=== PATIENT | male | born 1985 | race Caucasian/White ===

== ENCOUNTER 2024-03-03 19:59 | Emergency (ER) | payer MEDICAID, OTHER ==
[2024-03-03] MEDS: Ibuprofen 800 MG Tab PO ONE (21:58)
== END 2024-03-03 22:30 | disposition home or self-care (01) ==
LOC: MW.ED 19:59
DX: S00.83XA Contusion of other part of head, initial encounter (principal); Z79.899 Other long term (current) drug therapy; Z75.8 Other problems related to medical facilities and other health care; W50.0XXA Accidental hit or strike by another person, initial encounter; Y99.0 Civilian activity done for income or pay
CPT/HCPCS: 70100; 70110; 99283; A9270

== ENCOUNTER 2024-05-25 18:22 | Day surgery (SDC) | payer SELFPAY ==
[2024-05-25] MEDS ORDERED: Sodium Chloride 0.9% 10 ML Syringe FLUSH PRN ×2 (18:33→20:30)
[2024-05-25] MEDS ORDERED: Sodium Chloride 0.9% 2.5 ML Syringe FLUSH PRN ×2 (18:33→20:30)
[2024-05-25] MEDS: Iopamidol 755 MG/ML 500 ML Multipack Bottle IVPUSH STA (18:48)
[2024-05-25 18:54] LABS: BASOPHILS ABSOLUTE AUTO 0.06 K/uL (0.00-0.20); BASOPHILS PERCENT AUTO 0.4 % (0.0-1.0); EOSINOPHILS ABSOLUTE AUTO 0.57 K/uL (0.00-0.45); EOSINOPHILS PERCENT AUTO 3.7 % (0.0-6.0); HEMATOCRIT 45.5 % (42.0-52.0); HEMOGLOBIN 15.3 g/dL (14.0-18.0); IMMATURE GRAN ABSOLUTE AUTO 0.03 K/uL (0.00-0.05); IMMATURE GRAN PERCENT AUTO 0.2 % (0.0-0.4); LYMPHOCYTES ABSOLUTE AUTO 1.96 K/uL (1.00-4.80); LYMPHOCYTES PERCENT AUTO 12.9 % (24.0-44.0); MEAN CORPUSCULAR HEMOGLOBIN 30.1 pg (28.0-32.0); MEAN CORPUSCULAR HGB CONC 33.6 g/dL (32.0-36.0); MEAN CORPUSCULAR VOLUME 89.4 fL (83.0-99.0); MONOCYTES PERCENT AUTO 5.9 % (0.0-8.0); NEUTROPHILS ABSOLUTE AUTO 11.72 K/uL (1.80-7.70); NEUTROPHILS PERCENT AUTO 76.9 % (41.0-71.0); PLATELET COUNT,PLT 335 K/uL (150-400); RED BLOOD CELL COUNT 5.09 M/uL (4.52-5.90); WHITE BLOOD CELL COUNT,WBC 15.24 K/uL (3.9-11.3)
[2024-05-25 19:08] LABS: ALBUMIN 3.8 g/dL (3.4-5.0); BILIRUBIN TOTAL 1.6 mg/dL (0.2-1.0); CALCIUM 8.8 mg/dL (8.5-10.1); CARBON DIOXIDE,CO2 27.9 mmol/L (21.0-32.0); CREATININE 1.3 mg/dL (0.8-1.3); EST CRCL DRUG DOSING (CG) 85.39 mL/min; PROTEIN TOTAL,TP 7.5 g/dL (6.4-8.2)
[2024-05-25] MEDS ORDERED: Rocuronium Bromide 50 MG/5 ML Syringe ONE (20:16)
[2024-05-25] MEDS ORDERED: Propofol 200 MG/20 ML SDV ONE (20:16)
[2024-05-25] MEDS ORDERED: Dexamethasone 4 MG/ML 5 ML MDV ONE (20:16)
[2024-05-25] MEDS ORDERED: Ketorolac 30 MG/ML SDV ONE (20:16)
[2024-05-25] MEDS ORDERED: Ondansetron 4 MG/2 ML SDV ONE (20:16)
[2024-05-25] MEDS ORDERED: Sugammadex Sodium 200 MG/2 ML VIAL IV ONE (20:16)
[2024-05-25] MEDS ORDERED: Lidocaine 2% 5 ML SDV ONE (20:16)
[2024-05-25] MEDS ORDERED: fentaNYL 100 MCG/2 ML SDV ONE (20:16)
[2024-05-25] MEDS ORDERED: Bupivacaine 0.5% 30 ML SDV ONE ×2 (20:19→21:41)
[2024-05-25] MEDS ORDERED: Sodium Chloride 0.9% 20 ML SDV IV PRN (20:30)
[2024-05-25] MEDS ORDERED: Lactated Ringers 1,000 ML IV SCH (20:30)
[2024-05-25] MEDS: Morphine 4 MG/ML Syringe IVPUSH ONE (20:42)
[2024-05-25] MEDS: Piperacillin/Tazobactam 4.5 GM in Sodium Chloride 0.9% 100 ML IV STA (20:42)
[2024-05-25] MEDS: Ondansetron 4 MG/2 ML SDV IVPUSH STA (20:42)
[2024-05-25] MEDS ORDERED: Naloxone 0.4 MG/ML SDV IVPUSH PRN (21:35)
[2024-05-25] MEDS ORDERED: Morphine 2 MG/ML SYRINGE IVPUSH PRN (21:35)
[2024-05-25] MEDS ORDERED: Ondansetron 4 MG/2 ML SDV IVPUSH PRN (21:35)
[2024-05-25] MEDS ORDERED: Metoclopramide 10 MG/2 ML SDV IVPUSH PRN (21:35)
[2024-05-25] MEDS ORDERED: fentaNYL 50 MCG/ML SDV IVPUSH PRN (21:35)
[2024-05-25] MEDS ORDERED: Phenylephrine HCl In 0.9% NaCl 1 MG/10 ML Syringe IVPUSH PRN (21:35)
[2024-05-25] MEDS ORDERED: Albuterol 0.083% 2.5 MG/3 ML Neb Soln NEB PRN (21:35)
[2024-05-25] MEDS ORDERED: Bupivacaine 0.25% 30 ML SDV ONE (21:41)
[2024-05-25] MEDS ORDERED: EPINEPHrine 1 MG/1 ML Amp ONE (21:41)
[2024-05-25] MEDS: HYDROmorphone 1 MG/ML Syringe IVPUSH PRN (22:30)
[2024-05-25 22:49] LABS: HEMOGLOBIN A1C 6.3 %
[2024-05-25] MEDS: HYDROmorphone 0.5 MG/0.5 ML Syringe IVPUSH PRN (23:21)
[2024-05-26] MEDS: Acetaminophen/oxyCODONE 325-5 MG Tab PO PRN (01:03)
[2024-05-26] MEDS ORDERED: Ketorolac 30 MG/ML SDV IVPUSH PRN ×2 (04:00)
[2024-05-26] MEDS: Polyethylene Glycol 3350 Powder 17 GM Packet PO SCH (09:26)
== END 2024-05-26 12:30 | disposition home or self-care (01) ==
LOC: MW.ED 18:22 → MW.SDS 20:51 → MW.MS 20:52 → MW.SDS 05-26 12:30
PROVIDERS: ATTEND Surgery
DX: K35.33 Acute appendicitis with perforation, localized peritonitis, and gangrene, with abscess (principal); E11.9 Type 2 diabetes mellitus without complications
CPT/HCPCS: 36415; 44970; 74177; 80053; 83036; 83690; 85025; A9270; J0665; J1100; J1171; J1885; J2003; J2270; J2405; J2543; J2704; J3010; Q9967; 00840; 64488; 96374; 96375; 99283; 99285-25; J3490